=== PATIENT | male | born 1960 | race Two or more races ===

== ENCOUNTER → 2017-11-18 | Emergency (ER) | payer OTHER | END | disposition left against medical advice (07) | LOC: ER 10:26 | DX: Z53.20 Procedure and treatment not carried out because of patient's decision for unspecified reasons (principal) ==

== ENCOUNTER 2023-10-20 11:50 | Emergency (ER) | payer OTHER ==
[~2023-10-20] VITALS: Ht 172.7 cm; Wt 89.8 kg
[2023-10-20] MEDS ORDERED: LIPITOR20 MG (12:31)
[2023-10-20] MEDS ORDERED: LOSARTAN-HCTZ1 EAC1 (12:31)
[2023-10-20] MEDS ORDERED: KETOROLAC TROMETHAMINE 30 MG VIAL IM ONE (13:45)
[2023-10-20] MEDS ORDERED: KETOROLAC TROMETHAMINE 30 MG VIAL ONE (13:54)
== END 2023-10-20 16:16 | disposition home or self-care (01) ==
LOC: ER 11:51
DX: S82.034A Nondisplaced transverse fracture of right patella, initial encounter for closed fracture (principal); W01.0XXA Fall on same level from slipping, tripping and stumbling without subsequent striking against object, initial encounter; Y93.89 Activity, other specified; Y92.89 Other specified places as the place of occurrence of the external cause; Z88.8 Allergy status to other drugs, medicaments and biological substances